=== PATIENT | male | born 1970 | race African-American/Black ===

== ENCOUNTER 2019-01-22 09:41 | Inpatient (IN) | payer OTHER ==
[2019-01-22] MEDS ORDERED: SODIUM CHLORIDE 1,000 ML IV STA (10:26)
[2019-01-22] MEDS ORDERED: FAMOTIDINE 20 MG/50 ML IVPB 20 MG/50 ML MG IVPB ONE ×2 (10:49→11:15)
[2019-01-22] MEDS ORDERED: ONDANSETRON 4 MG/2 ML VIAL IVPUSH ONE (10:49)
[2019-01-22] MEDS ORDERED: ONDANSETRON 4 MG/2 ML VIAL ONE (11:15)
[2019-01-22 11:27] LABS: BASO % 0.2 % (0-2.0); EOS % 0.4 % (0-4.5); HEMATOCRIT 45.3 % (35.4-49); HEMOGLOBIN 14.9 GM/dL (11.7-16.9); LYMPH % 22.4 % (8-40); MCH 29.1 pg (25.7-33.7); MEAN CELL VOLUME 88.1 fl (80-96); MEAN PLT VOLUME 8.1 fl (7.5-11.1); MONO % 16.3 % (3.8-10.2); NEUT % 60.7 % (42.8-82.8); PLATELET COUNT 415 K/MM3 (134-434); RBC 5.14 M/mm3 (4.00-5.60); RDW 15.3 % (11.9-15.9); WHITE BLOOD COUNT 11.7 K/mm3 (4.0-10.0)
--- NOTE | 2019-01-22 11:37 | PDOC ---
History of Present Illness - General Chief Complaint: Pain Stated Complaint: DIARRHEA/ABD PAIN Time Seen by Provider: 01/22/19 10:33 History Source: Patient, Significant Other Exam Limitations: No Limitations - History of Present Illness Initial Comments: 01/22/19 11:30 48 yo M w/ a h/o enlarged prostate comes in c/o 7 days of Diffuse abdominal pain , mostly lower with multiple episodes (more than 10 daily) of NB diarrhea. No nausea/vomiting, no urinary symptoms. Pt says that he savage snot been able to eat because he is scared. he has been drinking orange juice and water which is not helping. Last night he ate some chicken fried rice and he has been worse since. He does not ercall eating anything out of the ordinary when it all started a week ago. He had some rice and ribs for lunch but his friend who ate the same food is not sick. No recent travel. no rash. No recent antibiotic use. Past History - Past Medical History Allergies/Adverse Reactions: Allergies Allergy/AdvReac Type Severity Reaction Status Date / Time No Known Allergies Allergy Verified 01/22/19 09:47 Home Medications: Ambulatory Orders Tamsulosin HCl [Flomax] 0.4 mg PO DAILY 01/22/19 COPD: No Other medical history: overactive bladder, enlarged prostate - Immunization History Td Vaccination: No Immunization Up to Date: Yes - Suicide/Smoking/Psychosocial Hx Smoking Status: Yes Smoking History: Current every day smoker Number of Cigarettes Smoked Daily: 20 Information on smoking cessation initiated: No 'Breaking Loose' booklet given: 08/11/14 Hx Alcohol Use: No Drug/Substance Use Hx: No Review of Systems - Review of Systems Able to Perform ROS?: Yes Constitutional: No: Chills, Fever, Malaise, Night Sweats HEENTM: No: Eye Pain, Recent change in vision, Throat Pain Respiratory: No: Cough, Shortness of Breath Cardiac (ROS): No: Chest Pain, Palpitations, Chest Tightness ABD/GI: Yes: Diarrhea, Abdominal cramping. No: Nausea, Vomiting : No: Dysuria, Hematuria Musculoskeletal: No: Back Pain Integumentary: No: Rash Neurological: No: Headache, Numbness, Dizziness Psychiatric: Yes: Change in Appetite Endocrine: No: Unexplained Weight Loss *Physical Exam - Vital Signs Last Vital Signs Temp Pulse Resp BP Pulse Ox 98.3 F 85 18 102/69 98 01/22/19 09:49 01/22/19 09:49 01/22/19 09:49 01/22/19 09:49 01/22/19 09:49 - Physical Exam General Appearance: Yes: Nourished. No: Apparent Distress HEENT: positive: SILVINO, Normal ENT Inspection, Normal Voice. negative: Pale Conjunctivae, Scleral Icterus (R), Scleral Icterus (L) Neck: positive: Supple. negative: Decreased range of motion, Tender midline Respiratory/Chest: positive: Lungs Clear, Normal Breath Sounds. negative: Respiratory Distress, Accessory Muscle Use Cardiovascular: positive: Regular Rhythm, Regular Rate Gastrointestinal/Abdominal: positive: Normal Bowel Sounds, Tender (Diffuse lower /upper abdomen, worse in LLQ, (+)rebound), Soft, Guarding, Rebound Musculoskeletal: positive: Normal Inspection. negative: CVA Tenderness, Decreased Range of Motion Extremity: positive: Normal Capillary Refill, Normal Inspection, Normal Range of Motion. negative: Tender, Pedal Edema Integumentary: positive: Normal Color, Dry. negative: Jaundice, Rash Neurologic: positive: Fully Oriented, Alert, Normal Mood/Affect ED Treatment Course - LABORATORY CBC & Chemistry Diagram: 01/22/19 11:20 01/22/19 11:20 - RADIOLOGY Radiology Studies Ordered: Category Date Time Status ABDOMEN & PELVIS CT WITH CONTR [CT] Stat CT Scan 01/22/19 10:48 Ordered - Medications Given in the ED: ED Medications Discontinued Medications Generic Name Dose Route Start Last Admin Trade Name Freq PRN Reason Stop Dose Admin Sodium Chloride 1,000 mls @ 1,000 mls/hr 01/22/19 10:26 01/22/19 11:22 Normal Saline - IV 01/22/19 11:25 1,000 mls/hr ASDIR STA Administration Famotidine/Sodium Chloride 20 mg in 50 mls @ 100 mls/hr 01/22/19 10:49 11:22 Pepcid 20 Mg Premixed Ivpb - IVPB 01/22/19 11:18 100 mls/hr ONCE ONE Administration Ondansetron HCl 4 mg 01/22/19 10:49 01/22/19 11:22 Zofran Injection IVPUSH 01/22/19 10:50 4 mg ONCE ONE Administration Medical Decision Making - Medical Decision Making 01/22/19 13:34 48 yo M w/ 1 week of abdominal pain and diarrhea, not better. WIll line and lab , give zofran, pepcid, IV fluids, do a CT abdomen/pelvis R/O colitis/ diverticulitis 01/22/19 15:01 CT shows pancolitis, R/O Cystitis. Urine pending. Also w/ likely benign sclerotic thigh lesin, will do femur xray. Will admit for IV antibiotics. ceftriaxone, flagyl ordered. Pt's PMD is not on staff. Microblog paged 01/22/19 16:15 CHange of shift, care of patient signed over to admitting team *DC/Admit/Observation/Transfer Diagnosis at time of Disposition: Pancolitis - Referrals Referrals: Latrice Rucker MD [Primary Care Provider] - - Patient Instructions - Post Discharge Activity
[2019-01-22 11:39] LABS: INR 1.14 (0.83-1.09); PROTHROMBIN TIME (PATIENT) 13.5 SEC (9.7-13.0)
[2019-01-22 11:52] LABS: ALBUMIN 3.5 g/dl (3.4-5.0); BILIRUBIN,TOTAL 0.4 mg/dL (0.2-1); BLOOD UREA NITROGEN 14.1 mg/dL (7-18); CALCIUM 9.5 mg/dL (8.5-10.1); CREATININE 1.1 mg/dL (0.55-1.3); MAGNESIUM 2.3 mg/dL (1.8-2.4); PHOSPHOROUS 3.2 mg/dL (2.5-4.9); POTASSIUM 4.2 mmol/L (3.5-5.1); TOT PROT 7.2 g/dl (6.4-8.2)
[2019-01-22] MEDS ORDERED: CEFTRIAXONE 1,000 MG in DEXTROSE 5%-WATER - 50 ML IVPB ONE (14:52)
--- NOTE | 2019-01-22 14:52 | PDOC ---
*Physical Exam - Vital Signs Last Vital Signs Temp Pulse Resp BP Pulse Ox 98.3 F 85 18 102/69 98 01/22/19 09:49 01/22/19 09:49 01/22/19 09:49 01/22/19 09:49 01/22/19 09:49 Heart Score/ECG Review #1 ECG reviewed & interpreted by me at: 16:38 General ECG Interpretation: Sinus Rhythm, Normal Rate (64), Normal Intervals ( qtc 408, LVH), No acute ischemic changes ED Treatment Course - LABORATORY CBC & Chemistry Diagram: 01/22/19 11:20 01/22/19 11:20 - ADDITIONAL ORDERS Additional order review: Laboratory Results 01/22/19 01/22/19 01/22/19 11:20 11:20 11:20 PT with INR 13.50 H INR 1.14 H Sodium 138 Potassium 4.2 Chloride 104 Carbon Dioxide 26 Anion Gap 8 BUN 14.1 Creatinine 1.1 Est GFR (CKD-EPI)AfAm 91.52 Est GFR (CKD-EPI)NonAf 78.96 Random Glucose 82 Calcium 9.5 Phosphorus 3.2 Magnesium 2.3 Total Bilirubin 0.4 AST 15 ALT 31 Alkaline Phosphatase 101 Total Protein 7.2 Albumin 3.5 Lipase 45 L Blood Type O POSITIVE Antibody Screen Negative 01/22/19 11:20 RBC 5.14 MCV 88.1 MCHC 33.0 RDW 15.3 MPV 8.1 Neutrophils % 60.7 Lymphocytes % 22.4 Monocytes % 16.3 H Eosinophils % 0.4 Basophils % 0.2 - Medications Given in the ED: ED Medications Discontinued Medications Generic Name Dose Route Start Last Admin Trade Name Markoq PRN Reason Stop Dose Admin Sodium Chloride 1,000 mls @ 1,000 mls/hr 01/22/19 10:26 01/22/19 11:22 Normal Saline - IV 01/22/19 11:25 1,000 mls/hr ASDIR STA Administration Famotidine/Sodium Chloride 20 mg in 50 mls @ 100 mls/hr 01/22/19 10:49 11:22 Pepcid 20 Mg Premixed Ivpb - IVPB 01/22/19 11:18 100 mls/hr ONCE ONE Administration Ondansetron HCl 4 mg 01/22/19 10:49 01/22/19 11:22 Zofran Injection IVPUSH 01/22/19 10:50 4 mg ONCE ONE Administration Medical Decision Making - Medical Decision Making 01/22/19 14:48 Patient seen and evaluated with the nurse practitioner. I agree with the overall evaluation, assessment, and management with the following summary of visit: 48y/o M one week intractable diarrhea/abd pain with chills, no fever. no recent sick contacts/travel/abx. no h/o recurring GI illness. exam as noted with diffuse ttp, some guarding, no rebound. no cvat ? colitis v. enteritis, not toxic appearing and HD stable labs notable for wbc [address] confirms pancolitis - start abx admit given pain/dehydration and colitis. GI consult *DC/Admit/Observation/Transfer Diagnosis at time of Disposition: Pancolitis - Referrals - Patient Instructions - Post Discharge Activity
[2019-01-22] MEDS ORDERED: CEFTRIAXONE 1 GM/50 ML BAG ONE (15:18)
[2019-01-22 16:19] LABS: PH,URINE 5.5 (5.0-8.0); URINE APPEARANCE CLEAR; URINE BILIRUBIN NEGATIVE (NEGATIVE); URINE COLOR YELLOW; URINE GLUCOSE (UA) NEGATIVE (NEGATIVE); URINE KETONE NEGATIVE (NEGATIVE); URINE LEUK ESTERASE NEGATIVE (NEGATIVE); URINE NITRITE NEGATIVE (NEGATIVE); URINE PROTEIN NEGATIVE (NEGATIVE); URINE UROBILINOGEN 0.2 mg/dL (0.2-1.0)
--- NOTE | 2019-01-22 17:52 | HP ---
CHIEF COMPLAINT: Abdominal pain PCP: None HISTORY OF PRESENT ILLNESS: 48 y/o M with PMHx of BPH presents with abdominal pain and dairrhea. Patient ate some rice and ribs prepared by a coworker one week ago. Shortly after he had sudden onset 9/10 cramping, abdominal pain without radiation accompanied by loose, watery, yellow stools. Abdominal pain somewhat improved with BMs. That same evening, patient had an episode of cold sweats and a fever measured to be 103. He used acetaminophen for his fever, and immodium for his diarrhea which provided minimal relief. Denies any associated travel, sick contacts, medication changes or abx use. Additionally denies any nausea, vomiting but endorses decreased PO intake. Allergies No Known Allergies Allergy (Verified 01/22/19 09:47) HOME MEDICATIONS: Home Medications Medication Instructions Recorded Tamsulosin HCl [Flomax] 0.4 mg PO DAILY 01/22/19 PHYSICAL EXAMINATION Vital Signs - 24 hr 01/22/19 09:49 Temperature 98.3 F Pulse Rate 85 Respiratory 18 Rate Blood Pressure 102/69 O2 Sat by Pulse 98 Oximetry (%) GENERAL: A&Ox3, NAD ENT: MMM LUNGS: CTAB, No wheezes, no crackles. HEART: Regular rate and rhythm, normal S1 and S2 without murmur ABDOMEN: Soft, tender to palpation in the LLQ, not distended, + bowel sounds, no guarding, no rebound RECTAL: Stool in the vault, good sphincter tone, no external or internal hemorrhoids noted, No active bleeding noted, No blood on tip of glove, Large prostate without any nodules palpated Laboratory Last Values WBC 11.7 K/mm3 (4.0-10.0) H 01/22/19 11:20 RBC 5.14 M/mm3 (4.00-5.60) 01/22/19 11:20 Hgb 14.9 GM/dL (11.7-16.9) 01/22/19 11:20 Hct 45.3 % (35.4-49) 01/22/19 11:20 MCV 88.1 fl (80-96) 01/22/19 11:20 MCH 29.1 pg (25.7-33.7) 01/22/19 11:20 MCHC 33.0 g/dl (32.0-35.9) 01/22/19 11:20 RDW 15.3 % (11.9-15.9) 01/22/19 11:20 Plt Count 415 K/MM3 (134-434) 01/22/19 11:20 MPV 8.1 fl (7.5-11.1) 01/22/19 11:20 Absolute Neuts (auto) 7.1 K/mm3 (1.5-8.0) 01/22/19 11:20 Neutrophils % 60.7 % (42.8-82.8) 01/22/19 11:20 Lymphocytes % 22.4 % (8-40) 01/22/19 11:20 Monocytes % 16.3 % (3.8-10.2) H 01/22/19 11:20 Eosinophils % 0.4 % (0-4.5) 01/22/19 11:20 Basophils % 0.2 % (0-2.0) 01/22/19 11:20 Nucleated RBC % 0 % (0-0) 01/22/19 11:20 PT with INR 13.50 SEC (9.7-13.0) H 01/22/19 11:20 INR 1.14 (0.83-1.09) H 01/22/19 11:20 Sodium 138 mmol/L (136-145) 01/22/19 11:20 Potassium 4.2 mmol/L (3.5-5.1) 01/22/19 11:20 Chloride 104 mmol/L (98-107) 01/22/19 11:20 Carbon Dioxide 26 mmol/L (21-32) 01/22/19 11:20 Anion Gap 8 MMOL/L (8-16) 01/22/19 11:20 BUN 14.1 mg/dL (7-18) 01/22/19 11:20 Creatinine 1.1 mg/dL (0.55-1.3) 01/22/19 11:20 Est GFR (CKD-EPI)AfAm 91.52 01/22/19 11:20 Est GFR (CKD-EPI)NonAf 78.96 01/22/19 11:20 Random Glucose 82 mg/dL (74-106) 01/22/19 11:20 Calcium 9.5 mg/dL (8.5-10.1) 01/22/19 11:20 Phosphorus 3.2 mg/dL (2.5-4.9) 01/22/19 11:20 Magnesium 2.3 mg/dL (1.8-2.4) 01/22/19 11:20 Total Bilirubin 0.4 mg/dL (0.2-1) 01/22/19 11:20 AST 15 U/L (15-37) 01/22/19 11:20 ALT 31 U/L (13-61) 01/22/19 11:20 Alkaline Phosphatase 101 U/L (45-117) 01/22/19 11:20 Total Protein 7.2 g/dl (6.4-8.2) 01/22/19 11:20 Albumin 3.5 g/dl (3.4-5.0) 01/22/19 11:20 Lipase 45 U/L (73-393) L 01/22/19 11:20 Urine Color Yellow 01/22/19 15:12 Urine Appearance Clear 01/22/19 15:12 Urine pH 5.5 (5.0-8.0) 01/22/19 15:12 Ur Specific [place] 1.078 (1.010-1.035) H 01/22/19 15:12 Urine Protein Negative (NEGATIVE) 01/22/19 15:12 Urine Glucose (UA) Negative (NEGATIVE) 01/22/19 15:12 Urine Ketones Negative (NEGATIVE) 01/22/19 15:12 Urine Blood Negative (NEGATIVE) 01/22/19 15:12 Urine Nitrite Negative (NEGATIVE) 01/22/19 15:12 Urine Bilirubin Negative (NEGATIVE) 01/22/19 15:12 Urine Urobilinogen 0.2 mg/dL (0.2-1.0) 01/22/19 15:12 Ur Leukocyte Esterase Negative (NEGATIVE) 01/22/19 15:12 Stool Occult Blood Negative (NEGATIVE) 01/22/19 17:15 Blood Type O POSITIVE 01/22/19 11:20 Antibody Screen Negative 01/22/19 11:20 ASSESSMENT/PLAN: 48 y/o M with PMHx of BPH presents with abdominal pain and dairrhea. #Pancolitis--Unclear etiology; Possibly infectious--CT A/P noted for pancolitis , 11.7 WBC, FOBT Negative, otherwise Afebrile VSS, rectal exam unremarkable #Paraumbilical hernia #Bladder Stones #Left Femur sclerotic lesion, found on imaging #Hx of BPH -Check CDiff toxin/ag, Stool cx, fecal fat, stool studies, O&P -Continue Ceftriaxone 1g daily, Metronidazole 500mg Q8H -IV hydration via LR -Trial Clear liquid diet -IV PPI -GI (Dr. Avelar) Consulted -DVT PPx Visit type - Emergency Visit Emergency Visit: Yes ED Registration Date: 01/22/19 Care time: The patient presented to the Emergency Department on the above date and was hospitalized for further evaluation of their emergent condition. - New Patient This patient is new to me today: Yes Date on this admission: 01/23/19 - Critical Care Critical Care patient: No ATTENDING PHYSICIAN STATEMENT I saw and evaluated the patient. I reviewed the resident's note and discussed the case with the resident. I agree with the resident's findings and plan as documented. SUBJECTIVE: OBJECTIVE: ASSESSMENT AND PLAN:
[2019-01-22] MEDS ORDERED: ACETAMINOPHEN 325 MG TABLET (FP) PO PRN (18:30)
--- NOTE | 2019-01-22 19:19 | PN ---
Teaching Attending Note Name of Resident: Kennedy Cook ATTENDING PHYSICIAN STATEMENT I saw and evaluated the patient. I reviewed the resident's note and discussed the case with the resident. I agree with the resident's findings and plan as documented. SUBJECTIVE: Ongoing abdominal discomfort, ongoing diarrhea, occasional vomiting. Fevers resolved. OBJECTIVE: Afebrile. Hemodynamicaly Stable. Last Vital Signs Temp Pulse Resp BP Pulse Ox 98.3 F 85 18 102/69 98 01/22/19 09:49 01/22/19 09:49 01/22/19 09:49 01/22/19 09:49 01/22/19 09:49 HEENT - Atraumatic, Normocephalic. Heart - S1, S2, RRR Lungs - clear to auscultation Abdomen - distended, mild tenderness, worse in LLQ. Extremities - No edema, no calf tenderness. Neuro - AAO x 3. Tone/Power normal all 4 extremities. Laboratory Results - last 24 hr 01/22/19 01/22/19 01/22/19 11:20 11:20 11:20 WBC 11.7 H RBC 5.14 Hgb 14.9 Hct 45.3 MCV 88.1 MCH 29.1 MCHC 33.0 RDW 15.3 Plt Count 415 MPV 8.1 Absolute Neuts (auto) 7.1 Neutrophils % 60.7 Lymphocytes % 22.4 Monocytes % 16.3 H Eosinophils % 0.4 Basophils % 0.2 Nucleated RBC % 0 PT with INR 13.50 H INR 1.14 H Sodium 138 Potassium 4.2 Chloride 104 Carbon Dioxide 26 Anion Gap 8 BUN 14.1 Creatinine 1.1 Est GFR (CKD-EPI)AfAm 91.52 Est GFR (CKD-EPI)NonAf 78.96 Random Glucose 82 Calcium 9.5 Phosphorus 3.2 Magnesium 2.3 Total Bilirubin 0.4 AST 15 ALT 31 Alkaline Phosphatase 101 Total Protein 7.2 Albumin 3.5 Lipase 45 L Urine Color Urine Appearance Urine pH Ur Specific [place] Urine Protein Urine Glucose (UA) Urine Ketones Urine Blood Urine Nitrite Urine Bilirubin Urine Urobilinogen Ur Leukocyte Esterase Stool Occult Blood Blood Type Antibody Screen 01/22/19 01/22/19 01/22/19 11:20 15:12 17:15 WBC RBC Hgb Hct MCV MCH MCHC RDW Plt Count MPV Absolute Neuts (auto) Neutrophils % Lymphocytes % Monocytes % Eosinophils % Basophils % Nucleated RBC % PT with INR INR Sodium Potassium Chloride Carbon Dioxide Anion Gap BUN Creatinine Est GFR (CKD-EPI)AfAm Est GFR (CKD-EPI)NonAf Random Glucose Calcium Phosphorus Magnesium Total Bilirubin AST ALT Alkaline Phosphatase Total Protein Albumin Lipase Urine Color Yellow Urine Appearance Clear Urine pH 5.5 Ur Specific [place] 1.078 H Urine Protein Negative Urine Glucose (UA) Negative Urine Ketones Negative Urine Blood Negative Urine Nitrite Negative Urine Bilirubin Negative Urine Urobilinogen 0.2 Ur Leukocyte Esterase Negative Stool Occult Blood Negative Blood Type O POSITIVE Antibody Screen Negative Current Medications Generic Name Dose Route Start Last Admin Trade Name Freq PRN Reason Stop Dose Admin Acetaminophen 650 mg 01/22/19 18:30 Tylenol - PO Q4H PRN PAIN LEVEL 6-10 Sodium Chloride 1,000 mls @ 125 mls/hr 01/22/19 18:30 Normal Saline - IV ASDIR VAHE Pantoprazole Sodium 40 mg 01/22/19 19:00 Protonix - PO DAILY [facility] Home Medications Medication Instructions Recorded Tamsulosin HCl [Flomax] 0.4 mg PO DAILY 01/22/19 ASSESSMENT AND PLAN: 48 year old male with history of BPH presents with 1 week history of cramping abdominal pain and diarrhea with associated fever. Fever has since resolved but he has remained with intermittent cramping abdominal discomfort and watery diarrhea, without melena or hematochezia. No nausea/vomiting/hematemesis. 1. Pancolitis, etiology unclear CT A/P - Pancolitis Afebrile, hemodynamically stable. Stool for Cx and Cdiff. Will cover with IV ceftriaxone/Flagyl Clear liquid diet and IV hydration. GI consult. 2. L proximal Femur sclerotic bone lesion, incidental finding on CT Plain film Xray requested. Orthopedic Surgery consulted. 3. Bladder Wall thickening/possible cystitis on CT - asymptomatic. Afebrile. Urine Cx requested. Placed on ceftriaxone for colitis. 3. BPH - continue Tamsulosin DVT Px - Heparin SQ GI Px - PPI.
[2019-01-22] MEDS ORDERED: PANTOPRAZOLE 40 MG TABLET (FP) ONE (19:24)
--- NOTE | 2019-01-22 19:24 | HP ---
CHIEF COMPLAINT: Abdominal pain PCP: Dr. Latrice Azar HISTORY OF PRESENT ILLNESS: 48 y/o male w PMH BPH presents with 1 week of abdominal pain and associated profuse diarrhea. Pt states that he consumed ribs and fried rice, made by his co -worker's , on 15 Jan 2019 and within the hour he experienced watery, voluminous, non-bloody, diarrhea. The diarrhea persisted with a frequency of up to x10 per day. Pt states diarrhea made better with Imodium, though only temporarily. Home temp recorded at onset of 103F; took Tylenol and had no high tempature recurrence. Abdominal pain not currently present but was epigastric, cramping, nonradiating, associated with new food, better with Imodium, 10/10 only at onset and now not present. No sick contacts. No back pain. No blood or mucous in stool. No contact with new animals. Experienced somewhat similar experience in late , which resolved with conservative management. Denies nausea and vomiting. ER course was notable for: (1) Ceftriaxone and flagyl given (2) CT (+) pancolitis (3) TALHA performed /FOBT acquired Recent Travel: denies PAST MEDICAL HISTORY: BPH on Flomax PAST SURGICAL HISTORY: Denies Social History: Smoking:Current smoker 1/2 ppd for past 12 years Alcohol: denies Drugs: denies Family History: mother, pancreatic cancer Allergies: No Known Allergies Allergy (Verified 01/22/19 09:47) HOME MEDICATIONS: Home Medications Medication Instructions Recorded Tamsulosin HCl [Flomax] 0.4 mg PO DAILY 01/22/19 REVIEW OF SYSTEMS CONSTITUTIONAL: Absent: fever, chills, diaphoresis, generalized weakness, malaise, loss of appetite, weight change HEENT: Absent: rhinorrhea, nasal congestion, throat pain, throat swelling, difficulty swallowing, mouth swelling, ear pain, eye pain, visual changes CARDIOVASCULAR: Absent: chest pain, syncope, palpitations, irregular heart rate, lightheadedness , peripheral edema RESPIRATORY: Absent: cough, shortness of breath, dyspnea with exertion, orthopnea, wheezing, stridor, hemoptysis GASTROINTESTINAL: Absent: abdominal pain, abdominal distension, nausea, vomiting, diarrhea, constipation, melena, hematochezia GENITOURINARY: Absent: dysuria, frequency, urgency, hesitancy, hematuria, flank pain, genital pain MUSCULOSKELETAL: Absent: myalgia, arthralgia, joint swelling, back pain, neck pain SKIN: Absent: rash, itching, pallor HEMATOLOGIC/IMMUNOLOGIC: Absent: easy bleeding, easy bruising, lymphadenopathy, frequent infections ENDOCRINE: Absent: unexplained weight gain, unexplained weight loss, heat intolerance, cold intolerance NEUROLOGIC: Absent: headache, focal weakness or paresthesias, dizziness, unsteady gait, seizure, mental status changes, bladder or bowel incontinence PSYCHIATRIC: Absent: anxiety, depression, suicidal or homicidal ideation, hallucinations. PHYSICAL EXAMINATION Vital Signs - 24 hr 01/22/19 09:49 Temperature 98.3 F Pulse Rate 85 Respiratory 18 Rate Blood Pressure 102/69 O2 Sat by Pulse 98 Oximetry (%) GENERAL: AOx3, in no acute distress. HEAD: NCAT EYES: JAKE, EOMI, conjunctiva clear. ENT: Ears normal, nares patent, oropharynx clear without exudates. Moist mucous membranes. NECK: Normal range of motion, supple without lymphadenopathy, JVD, or masses. LUNGS: CTAB. No wheezes, and no crackles. No accessory muscle use. HEART: RRR s1 s2 ABDOMEN: Obese, soft, BS present in all 4 quadrants, non-distended, no JVD, TALHA : good sphincter tone, large prostate, no stool in vault MUSCULOSKELETAL: No bony deformities or tenderness. No CVA tenderness. UPPER EXTREMITIES: 2+ pulses, warm, well-perfused. No cyanosis. No clubbing. No peripheral edema. LOWER EXTREMITIES: 2+ pulses, warm, well-perfused. No calf tenderness. No peripheral edema. NEUROLOGICAL: Cranial nerves II-XII intact. Normal speech. Gait not appreciated. PSYCHIATRIC: Cooperative. Good eye contact. Appropriate mood and affect. SKIN: Warm, dry, normal turgor, no rashes or lesions noted, normal capillary refill. Laboratory Results - last 24 hr 01/22/19 01/22/19 01/22/19 11:20 11:20 11:20 WBC 11.7 H RBC 5.14 Hgb 14.9 Hct 45.3 MCV 88.1 MCH 29.1 MCHC 33.0 RDW 15.3 Plt Count 415 MPV 8.1 Absolute Neuts (auto) 7.1 Neutrophils % 60.7 Lymphocytes % 22.4 Monocytes % 16.3 H Eosinophils % 0.4 Basophils % 0.2 Nucleated RBC % 0 PT with INR 13.50 H INR 1.14 H Sodium 138 Potassium 4.2 Chloride 104 Carbon Dioxide 26 Anion Gap 8 BUN 14.1 Creatinine 1.1 Est GFR (CKD-EPI)AfAm 91.52 Est GFR (CKD-EPI)NonAf 78.96 Random Glucose 82 Calcium 9.5 Phosphorus 3.2 Magnesium 2.3 Total Bilirubin 0.4 AST 15 ALT 31 Alkaline Phosphatase 101 Total Protein 7.2 Albumin 3.5 Lipase 45 L Urine Color Urine Appearance Urine pH Ur Specific [place] Urine Protein Urine Glucose (UA) Urine Ketones Urine Blood Urine Nitrite Urine Bilirubin Urine Urobilinogen Ur Leukocyte Esterase Stool Occult Blood Blood Type Antibody Screen 01/22/19 01/22/19 01/22/19 11:20 15:12 17:15 WBC RBC Hgb Hct MCV MCH MCHC RDW Plt Count MPV Absolute Neuts (auto) Neutrophils % Lymphocytes % Monocytes % Eosinophils % Basophils % Nucleated RBC % PT with INR INR Sodium Potassium Chloride Carbon Dioxide Anion Gap BUN Creatinine Est GFR (CKD-EPI)AfAm Est GFR (CKD-EPI)NonAf Random Glucose Calcium Phosphorus Magnesium Total Bilirubin AST ALT Alkaline Phosphatase Total Protein Albumin Lipase Urine Color Yellow Urine Appearance Clear Urine pH 5.5 Ur Specific [place] 1.078 H Urine Protein Negative Urine Glucose (UA) Negative Urine Ketones Negative Urine Blood Negative Urine Nitrite Negative Urine Bilirubin Negative Urine Urobilinogen 0.2 Ur Leukocyte Esterase Negative Stool Occult Blood Negative Blood Type O POSITIVE Antibody Screen Negative ASSESSMENT/PLAN: 48 y/o male with PMH BPH presents with 1 week history of cramping abdominal pain and diarrhea with associated fever. Fever has since resolved but he has remained with intermittent cramping abdominal discomfort and watery diarrhea, without melena or hematochezia. No nausea/vomiting/hematemesis. # Pancolitis, etiology unclear - CT A/P - pancolitis - Afebrile, hemodynamically stable. - Stool for Cx and Cdiff. - Will cover with IV ceftriaxone/flagyl - Clear liquid diet and IV hydration. - GI consult # Bladder stones - Found on CT - Asymptomatic # LEFT proximal Femur sclerotic bone lesion, incidental finding on CT - Plain film requested - Orthopedic Surgery consulted. # Bladder Wall thickening/possible cystitis on CT - Asymptomatic - Afebrile - Urine Cx pending - Ceftriaxone for colitis # BPH - Cont. Tamsulosin # DVT prophylaxis - Heparin SQ # GI prophylaxis - Protonix 40 mg QD # F/E/N - NS - Cont. to monitor electrolytes - Clear liquid diet Visit type - Emergency Visit Emergency Visit: Yes ED Registration Date: 01/22/19 Care time: The patient presented to the Emergency Department on the above date and was hospitalized for further evaluation of their emergent condition. - New Patient This patient is new to me today: Yes Date on this admission: 01/23/19 - Critical Care Critical Care patient: No ATTENDING PHYSICIAN STATEMENT I saw and evaluated the patient. I reviewed the resident's note and discussed the case with the resident. I agree with the resident's findings and plan as documented. SUBJECTIVE: OBJECTIVE: ASSESSMENT AND PLAN:
[2019-01-22] MEDS: PANTOPRAZOLE 40 MG TABLET (FP) PO SCH (19:29)
[2019-01-22] MEDS: SODIUM CHLORIDE 1,000 ML IV SCH (19:37)
[2019-01-22] MEDS ORDERED: HEPARIN NA (PORCINE) 5,000 UNITS/ML 1ML VIAL ONE (23:43)
[2019-01-22] MEDS: HEPARIN NA (PORCINE) 5,000 UNITS/ML 1ML VIAL SQ SCH (23:48)
[2019-01-23] MEDS ORDERED: ACETAMINOPHEN 325 MG TABLET (FP) ONE (00:22)
[2019-01-23] MEDS ORDERED: HEPARIN NA (PORCINE) 5,000 UNITS/ML 1ML VIAL ONE (05:46)
[2019-01-23] MEDS: HEPARIN NA (PORCINE) 5,000 UNITS/ML 1ML VIAL SQ SCH ×3 (06:10→22:32)
[2019-01-23 07:27] LABS: BASO % 0.3 % (0-2.0); EOS % 0.8 % (0-4.5); HEMATOCRIT 38.8 % (35.4-49); HEMOGLOBIN 13.1 GM/dL (11.7-16.9); LYMPH % 19.2 % (8-40); MCH 29.9 pg (25.7-33.7); MCHC 33.8 g/dl (32.0-35.9); MEAN CELL VOLUME 88.4 fl (80-96); MONO % 18.8 % (3.8-10.2); NEUT % 60.9 % (42.8-82.8); PLATELET COUNT 353 K/MM3 (134-434); RBC 4.39 M/mm3 (4.00-5.60); RDW 15.1 % (11.9-15.9); WHITE BLOOD COUNT 9.1 K/mm3 (4.0-10.0)
[2019-01-23 07:46] LABS: MAGNESIUM 2.1 mg/dL (1.8-2.4); PHOSPHOROUS 2.6 mg/dL (2.5-4.9)
[2019-01-23] MEDS ORDERED: CEFTRIAXONE 1 GM in DEXTROSE 5%-WATER - 50 ML IVPB SCH (10:00)
[2019-01-23] MEDS ORDERED: CEFTRIAXONE 1 GM/50 ML BAG ONE (11:32)
[2019-01-23] MEDS ORDERED: cefTRIAXone SODIUM 1 GM VIAL ONE (11:57)
[2019-01-23] MEDS ORDERED: DEXTROSE 5%-WATER - 50 ML IVPB ONE (11:57)
[2019-01-23] MEDS: SODIUM CHLORIDE 1,000 ML IV SCH ×2 (12:08→23:35)
[2019-01-23] MEDS: PANTOPRAZOLE 40 MG TABLET (FP) PO SCH (12:08)
--- NOTE | 2019-01-23 14:06 | EKG ---
Test Reason : Blood Pressure : / mmHG Vent. Rate : 064 BPM Atrial Rate : 064 BPM P-R Int : 160 ms QRS Dur : 100 ms QT Int : 396 ms P-R-T Axes : 068 056 042 degrees QTc Int : 408 ms NORMAL SINUS RHYTHM POSSIBLE LEFT ATRIAL ENLARGEMENT LEFT VENTRICULAR HYPERTROPHY ABNORMAL ECG NO PREVIOUS ECGS AVAILABLE Confirmed by JIMI MCKEON MD ([id number]) on 01/23/2019 2:06:20 PM Referred By: Confirmed By:JIMI MCKEON MD
--- NOTE | 2019-01-23 14:30 | CON.GI ---
Consult Consult Specialty:: GI Referred by:: Hospitalist Service Reason for Consultation:: Diarrhea - History of Present Illness Chief Complaint: Diarrhea History of Present Illness: 48M in his USOH up until last . He states that that day, he had ribs for lunch at around 1pm. at around 5:30 that noght, he developed shakes, sweats and chills. His temp was 101F. He then began experiencing abdominal cramping associated with multiple water bowel movements. He denies nausea or vomiting. Diarrhea persisted through last weekend and this week, becoming a little less frequent yesterday prior to his evaluation at [facility]. He denies any rectal bleeding or blood diarrhea. He denies similar episodes in the past, recent travel, sick contacts, antibiotic use. Fevers and chills stoped the first day of the onset of his symptoms. The abdominal cramping seems to occur only prior to a bowel movement. he denies tenesmus complaints. CT scan performed in the ED revealed a diffusely thickened colon consistent with colitis. There is no family history of colorectal cancer / IBD / Celiac disease. He has never had an upper endoscopy or colonoscopy. - History Source History Provided By: Patient Limitations to Obtaining History: No Limitations - Past Medical History Renal/: Yes: BPH - Past Surgical History Past Surgical History: Yes: None - Alcohol/Substance Use Hx Alcohol Use: No - Smoking History Smoking history: Current every day smoker Have you smoked in the past 12 months: Yes Aproximately how many cigarettes per day: 20 - Social History Usual Living Arrangement: With Spouse ADL: Independent Occupation: Works in a warehouse Place of : [facility] History of Recent Travel: No Home Medications - Allergies Allergies/Adverse Reactions: Allergies Allergy/AdvReac Type Severity Reaction Status Date / Time No Known Allergies Allergy Verified 01/22/19 09:47 - Home Medications Home Medications: Ambulatory Orders Tamsulosin HCl [Flomax] 0.4 mg PO DAILY 01/22/19 Family Disease History - Family Disease History Family Disease History: Other: Father (Alive: healthy), Mother (: Pancreatic ca: 58), Brother (3, healthy), Daughter (2, healthy) Other Family History: No family history of colorectal cancer, IBD, celiac disease Review of Systems - Review of Systems Constitutional: reports: Chills (resolved), Fever (resolved). denies: Night Sweats, Unintentional Wgt. Loss Cardiovascular: denies: Chest Pain Respiratory: denies: Cough Gastrointestinal: reports: Abdominal Pain (cramping), Diarrhea. denies: Bloating, Constipation, Nausea, Rectal Bleeding, Vomiting Physical Exam-GI Vital Signs: Vital Signs Temperature 98.1 F 01/23/19 11:23 Pulse Rate 68 01/23/19 11:23 Respiratory Rate 18 01/23/19 11:23 Blood Pressure 132/82 01/23/19 11:23 O2 Sat by Pulse Oximetry (%) 99 on RA 01/23/19 11:23 Constitutional: Yes: Calm Eyes: No: Sclera Icterus Cardiovascular: Yes: Regular Rate and Rhythm. No: Murmur Respiratory: Yes: CTA Bilaterally Gastrointestinal Inspection: No: Distention, Scars ...Auscultate: Yes: Normoactive Bowel Sounds ...Palpate: Yes: Soft. No: Hepatomegaly, Splenomegaly ...Percussion: No: Tympanitic Edema: No (No LE edema) Neurological: Yes: Alert Labs: CBC, BMP 01/23/19 07:00 01/22/19 11:20 INR, PTT INR 1.14 (0.83-1.09) H 01/22/19 11:20 Hepatic Panel Total Bilirubin 0.4 mg/dL (0.2-1) 01/22/19 11:20 AST 15 U/L (15-37) 01/22/19 11:20 ALT 31 U/L (13-61) 01/22/19 11:20 Alkaline Phosphatase 101 U/L (45-117) 01/22/19 11:20 Albumin 3.5 g/dl (3.4-5.0) 01/22/19 11:20 Imaging - Results Cat Scan: Report Reviewed, Image Reviewed Problem List - Problems (1) Diarrhea Assessment/Plan: Acute diarrhea with CT findings suggestive of a colitis. A self limited infectious colitis would need to be higher in the differential given acuity of symptoms. Mr. Borrego appears clinically well without focal findings on my exam. Stool culture, C. Diff pending. Fecal calprotectin and Norovirus PCR ordered as well, however symptoms from norovirus are usually brief in duration and not associated with a colitis. I have advanced his diet to lactose free. he does not have bloody diarrhea, continued fevers and does not give history of immunocompromised state. Can likely hold off on antibiotics at this time. Consider HIV testing Monitor clinically and for tolerance of his diet AM labs Code(s): R19.7 - DIARRHEA, UNSPECIFIED Qualifiers: Diarrhea type: presumed infectious Qualified Code(s): R19.7 - Diarrhea, unspecified
--- NOTE | 2019-01-23 15:24 | PN ---
Progress Note (short form) - Note Progress Note: C. Diff Ag +. Given symptoms and colitis on CT scan would start treatment, await remaining stool work-up, stopped protonix and ordered C. Diff toxin PCR. Consider ID evaluation Problem List - Problems (1) Diarrhea Code(s): R19.7 - DIARRHEA, UNSPECIFIED Qualifiers: Diarrhea type: presumed infectious Qualified Code(s): R19.7 - Diarrhea, unspecified
--- NOTE | 2019-01-23 17:26 | PN ---
Physical Exam: SUBJECTIVE: 48 y/o male with PMH BPH presents with 1 week history of cramping abdominal pain and diarrhea with associated fever. Fever has since resolved but he has remained with intermittent cramping abdominal discomfort and watery diarrhea, without melena or hematochezia. No nausea/vomiting/hematemesis. Pt seen at bedside today. He reports continued diarrhea x6, mostly water, no blood. He denies NVFC. OBJECTIVE: Vital Signs Period Temp Pulse Resp BP Sys/Soni Pulse Ox Last 24 Hr 97.8 F-98.3 F 62-84 18-20 118-147/64-81 98-100 GENERAL: AOx3, in no acute distress. HEAD: NCAT EYES: JAKE, EOMI, conjunctiva clear. ENT: Ears normal, nares patent, oropharynx clear without exudates. Moist mucous membranes. NECK: Normal range of motion, supple without lymphadenopathy, JVD, or masses. LUNGS: CTAB. No wheezes, and no crackles. No accessory muscle use. HEART: RRR s1 s2 ABDOMEN: Obese, soft, BS present in all 4 quadrants, non-distended, no JVD, TALHA : good sphincter tone, large prostate, no stool in vault MUSCULOSKELETAL: No bony deformities or tenderness. No CVA tenderness. UPPER EXTREMITIES: 2+ pulses, warm, well-perfused. No cyanosis. No clubbing. No peripheral edema. LOWER EXTREMITIES: 2+ pulses, warm, well-perfused. No calf tenderness. No peripheral edema. NEUROLOGICAL: Cranial nerves II-XII intact. Normal speech. Gait not appreciated. PSYCHIATRIC: Cooperative. Good eye contact. Appropriate mood and affect. SKIN: Warm, dry, normal turgor, no rashes or lesions noted, normal capillary refill. Laboratory Results - last 24 hr 01/22/19 01/22/19 01/23/19 17:15 20:45 07:00 WBC 9.1 RBC 4.39 Hgb 13.1 Hct 38.8 MCV 88.4 MCH 29.9 MCHC 33.8 RDW 15.1 Plt Count 353 MPV 8.0 Absolute Neuts (auto) 5.5 Neutrophils % 60.9 Lymphocytes % 19.2 Monocytes % 18.8 H Eosinophils % 0.8 D Basophils % 0.3 Nucleated RBC % 0 Phosphorus Magnesium Stool Occult Blood Negative Blood Type O POSITIVE 01/23/19 07:00 WBC RBC Hgb Hct MCV MCH MCHC RDW Plt Count MPV Absolute Neuts (auto) Neutrophils % Lymphocytes % Monocytes % Eosinophils % Basophils % Nucleated RBC % Phosphorus 2.6 Magnesium 2.1 Stool Occult Blood Blood Type Active Medications Acetaminophen (Tylenol -) 650 mg PO Q4H PRN PRN Reason: PAIN LEVEL 6-10 Last Admin: 01/23/19 00:30 Dose: 650 mg Heparin Sodium (Porcine) (Heparin -) 5,000 unit SQ TID [facility] Last Admin: 01/24/19 22:02 Dose: 5,000 unit Vancomycin HCl (Vancomycin Oral Solution) 125 mg PO Q6HPO [facility] Last Admin: 01/24/19 17:03 Dose: 125 mg ASSESSMENT/PLAN: 48 y/o male with PMH BPH presents with 1 week history of cramping abdominal pain and diarrhea with associated fever. Fever has since resolved but he has remained with intermittent cramping abdominal discomfort and watery diarrhea, without melena or hematochezia. No nausea/vomiting/hematemesis. # Pancolitis, 2/2 c diff - CT A/P - pancolitis - Afebrile, hemodynamically stable. - Cdiff. organism (+) - Empiric IV Ceftriaxone/Flagyl stopped. PPI held. Started on oral Vancomycin. - Clear liquid diet and IV hydration. - GI consult: > Stop protonix > Consider ID evaluation > Advance to lactose free diet # Bladder stones - Found on CT - Asymptomatic # LEFT proximal Femur sclerotic bone lesion, incidental finding on CT - Plain film requested - Orthopedic Surgery consulted > Benign lesion. > Will need to follow up with an orthopedic oncologist for further evaluation and management after he is d/c. Dr. Blake Carmen (Orthopedic Oncology at [facility], ) > Advised to seek immediate care if he develops hip or groin pain. # Bladder Wall thickening/possible cystitis on CT - Asymptomatic - Afebrile - Urine Cx pending - Ceftriaxone for colitis # BPH - Cont. Tamsulosin # DVT prophylaxis - Heparin SQ # GI prophylaxis - Protonix 40 mg QD # F/E/N - NS - Cont. to monitor electrolytes - Clear liquid diet Kennedy Cook MD Visit type - Emergency Visit Emergency Visit: No - New Patient This patient is new to me today: No - Critical Care Critical Care patient: No - Discharge Referral Referred to [facility] Med P.C.: No ATTENDING PHYSICIAN STATEMENT I saw and evaluated the patient. I reviewed the resident's note and discussed the case with the resident. I agree with the resident's findings and plan as documented. SUBJECTIVE: OBJECTIVE: ASSESSMENT AND PLAN:
[2019-01-23] MEDS: VANCOMYCIN 250 MG/5 ML ORAL SOLUTION PO SCH ×2 (17:34→23:32)
--- NOTE | 2019-01-23 18:37 | CONSULT ---
Consult - text type - Consultation Consultation Note: ORTHOPEDIC SURGERY CONSULTATION NOTE Department of Orthopedic Surgery HISTORY OF PRESENT ILLNESS Lorenzo Borrego is a 48 year old male who was admitted to [facility] with colitis. The orthopedic service was consulted for a incidental sclerotic lesion of the proximal femur. The patient has no hip pain currently or history of hip or groin pain. Denies any recent injuries. Denies numbness, tingling or other constitutional complaints. Endorses tobacco use. Denies drug use or alcohol abuse. The patient lives with his and uses no assistive devices at baseline. Active Problems Problem Status Category Onset Diarrhea Acute Medical Pancolitis Acute Medical Past Medical History Renal/ BPH Past Surgical History Past Surgical History None Social History Smoking history Current every day smoker Aproximately how many 20 cigarettes per day Hx Alcohol Use No Usual Living Arrangement With Spouse ADL Independent Occupation Works in a [employer] History of Recent Travel No Allergies Allergy/AdvReac Type Severity Reaction Status Date / Time No Known Allergies Allergy Verified 01/22/19 09:47 Active Medications Generic Name Dose Route Start Last Admin Trade Name Freq PRN Reason Stop Dose Admin Acetaminophen 650 mg 01/22/19 18:30 01/23/19 00:30 Tylenol - PO 650 mg Q4H PRN Administration PAIN LEVEL 6-10 Heparin Sodium (Porcine) 5,000 unit 01/22/19 22:00 01/23/19 14:13 Heparin - SQ 5,000 unit TID [facility] Administration Sodium Chloride 1,000 mls @ 125 mls/hr 01/22/19 18:30 01/23/19 12:08 Normal Saline - IV 125 mls/hr ASDIR [facility] Administration Vancomycin HCl 125 mg 01/23/19 18:00 01/23/19 17:34 Vancomycin Oral Solution PO 125 mg Q6HPO [facility] Administration Vital Signs (last) Temp Pulse Resp BP Pulse Ox 98.3 F 62 18 128/67 99 01/23/19 14:24 01/23/19 14:24 01/23/19 14:24 01/23/19 14:24 01/23/19 12:23 Intake and Output 01/21/19 01/22/19 01/23/19 23:59 23:59 23:59 Intake Total 450 Balance 450 Intake: IV 300 Normal Saline - 1,000 ml 300 @ 125 mls/hr IV ASDIR [facility] Rx#:[id number] IVPB 150 Other: Voiding Method Toilet Toilet Bowel Movement Yes # Bowel Movements 1 Weight 218 lb 215 lb 8 oz Height 6 ft 6 ft Body Mass Index (BMI) 29.5 29.2 Weight Measurement Method Standing Scale Weight Measurement Method Est/Stated by Patient Laboratory 01/23/19 07:00 01/22/19 11:20 PT with INR 13.50 SEC (9.7-13.0) H 01/22/19 11:20 Active Problems Problem Status Category Onset Diarrhea Acute Medical Pancolitis Acute Medical Past Medical History Renal/ BPH Past Surgical History Past Surgical History None Social History Smoking history Current every day smoker Aproximately how many 20 cigarettes per day Hx Alcohol Use No Usual Living Arrangement With Spouse ADL Independent Occupation Works in a [employer] History of Recent Travel No Allergies Allergy/AdvReac Type Severity Reaction Status Date / Time No Known Allergies Allergy Verified 01/22/19 09:47 Active Medications Generic Name Dose Route Start Last Admin Trade Name Freq PRN Reason Stop Dose Admin Acetaminophen 650 mg 01/22/19 18:30 01/23/19 00:30 Tylenol - PO 650 mg Q4H PRN Administration PAIN LEVEL 6-10 Heparin Sodium (Porcine) 5,000 unit 01/22/19 22:00 01/23/19 14:13 Heparin - SQ 5,000 unit TID [facility] Administration Sodium Chloride 1,000 mls @ 125 mls/hr 01/22/19 18:30 01/23/19 12:08 Normal Saline - IV 125 mls/hr ASDIR [facility] Administration Vancomycin HCl 125 mg 01/23/19 18:00 01/23/19 17:34 Vancomycin Oral Solution PO 125 mg Q6HPO [facility] Administration Vital Signs (last) Temp Pulse Resp BP Pulse Ox 98.3 F 62 18 128/67 99 01/23/19 14:24 01/23/19 14:24 01/23/19 14:24 01/23/19 14:24 01/23/19 12:23 Intake and Output 01/21/19 01/22/19 01/23/19 23:59 23:59 23:59 Intake Total 450 Balance 450 Intake: IV 300 Normal Saline - 1,000 ml 300 @ 125 mls/hr IV ASDIR [facility] Rx#:[id number] IVPB 150 Other: Voiding Method Toilet Toilet Bowel Movement Yes # Bowel Movements 1 Weight 218 lb 215 lb 8 oz Height 6 ft 6 ft Body Mass Index (BMI) 29.5 29.2 Weight Measurement Method Standing Scale Weight Measurement Method Est/Stated by Patient Laboratory 01/23/19 07:00 01/22/19 11:20 PT with INR 13.50 SEC (9.7-13.0) H 01/22/19 11:20 FAMILY HISTORY Reviewed and noncontributory. REVIEW OF SYMPTOMS A twelve-point review of systems was performed and was negative except as noted in HPI. PHYSICAL EXAM Constitutional: Alert and oriented to person, place, and time. Appears well- developed and well-nourished. No acute distress, appropriate mood and affect. Right Upper Extremity: No tenderness to palpation. Full passive and active ROM, free from pain. Left Upper Extremity: No tenderness to palpation. Full passive and active ROM, free from pain. Right Lower Extremity: Skin warm, dry, and intact; no lesions, rashes or ulcers noted. Muscle mass equal and symmetric to contralateral side. No atrophy noted. No masses or effusions noted. No tenderness to palpation. No cords or calf tenderness. No significant calf/ankle edema. Full passive and active ROM, free from pain. Joints stable with no pathologic laxity. EHL/TA/GS motor intact; SILT distally; 2+ DP pulses; Cap refill brisk. Tone and reflexes normal. Left Lower Extremity: Skin warm, dry, and intact; no lesions, rashes or ulcers noted. Muscle mass equal and symmetric to contralateral side. No atrophy noted. No masses or effusions noted. No tenderness to palpation. No cords or calf tenderness. No significant calf/ankle edema. Full passive and active ROM, free from pain. Joints stable with no pathologic laxity. EHL/TA/GS motor intact; SILT distally; 2+ DP pulses; Cap refill brisk. Tone and reflexes normal. IMAGING I personally reviewed all radiographs and CT imaging. They demonstrate a well- defined 4.8 x 2.4 cm lesion with a central luceny and a sclerotic rim of varying thickness located in the intertrochanteric region of the left proximal femur. There is no periosteal reaction or cortical destruction. ASSESSMENT AND PLAN Lorenzo Borrego is a 48 year old male with an incidental finding of a 4.8 x 2.4 cm lesion located in the intertrochanteric region of the left proximal femur. The patient does not have any pain, limping, or abnormal gait pattern. We have reviewed the imaging and clinical findings in detail, as well as their potential implications. This appears to be a benign lesion. No orthopedic intervention is necessary at this time; however, the patient will need to follow up with an orthopedic oncologist for further evaluation and management after he is discharged from the hospital. I have given him the information for Dr. Blake Carmen (Orthopedic Oncology at [facility], ). He expressed understanding and will follow up accordingly. He may be weight bearing as tolerated, but was advised to seek immediate care if he develops hip or groin pain. All questions were answered. Thank you for involving our team in the care of this patient. Please call with any questions [phone].
--- NOTE | 2019-01-23 18:41 | PN ---
Teaching Attending Note Name of Resident: Kennedy Cook ATTENDING PHYSICIAN STATEMENT I saw and evaluated the patient. I reviewed the resident's note and discussed the case with the resident. I agree with the resident's findings and plan as documented. SUBJECTIVE: Abdominal discomfort resolved but ongoing watery diarrhea - x 6 overnight. Fevers resolved. OBJECTIVE: Afebrile. Hemodynamicaly Stable. Last Vital Signs Temp Pulse Resp BP Pulse Ox 98.3 F 62 18 128/67 99 01/23/19 14:24 01/23/19 14:24 01/23/19 14:24 01/23/19 14:24 01/23/19 12:23 Heart - S1, S2, RRR Lungs - clear to auscultation Abdomen - distended, non-tender. Bowel Sounds normal. Extremities - No edema, no calf tenderness. Neuro - AAO x 3. Tone/Power normal all 4 extremities. Laboratory Results - last 24 hr 01/22/19 01/23/19 01/23/19 20:45 07:00 07:00 WBC 9.1 RBC 4.39 Hgb 13.1 Hct 38.8 MCV 88.4 MCH 29.9 MCHC 33.8 RDW 15.1 Plt Count 353 MPV 8.0 Absolute Neuts (auto) 5.5 Neutrophils % 60.9 Lymphocytes % 19.2 Monocytes % 18.8 H Eosinophils % 0.8 D Basophils % 0.3 Nucleated RBC % 0 Phosphorus 2.6 Magnesium 2.1 Blood Type O POSITIVE Current Medications Generic Name Dose Route Start Last Admin Trade Name Freq PRN Reason Stop Dose Admin Acetaminophen 650 mg 01/22/19 18:30 01/23/19 00:30 Tylenol - PO 650 mg Q4H PRN Administration PAIN LEVEL 6-10 Heparin Sodium (Porcine) 5,000 unit 01/22/19 22:00 01/23/19 14:13 Heparin - SQ 5,000 unit TID [facility] Administration Sodium Chloride 1,000 mls @ 125 mls/hr 01/22/19 18:30 01/23/19 12:08 Normal Saline - IV 125 mls/hr ASDIR [facility] Administration Vancomycin HCl 125 mg 01/23/19 18:00 01/23/19 17:34 Vancomycin Oral Solution PO 125 mg Q6HPO [facility] Administration Home Medications Medication Instructions Recorded Tamsulosin HCl [Flomax] 0.4 mg PO DAILY 01/22/19 ASSESSMENT AND PLAN: 48 year old male with history of BPH presents with 1 week history of cramping abdominal pain and diarrhea with associated fever. Fever has since resolved but he has remained with intermittent cramping abdominal discomfort and watery diarrhea, without melena or hematochezia. No nausea/vomiting/hematemesis. 1. Pancolitis, etiology unclear CT A/P - Pancolitis Afebrile, hemodynamically stable. Stool Cx pending. Cdiff positive Empiric IV Ceftriaxone/Flagyl stopped. PPI held. Started on oral Vancomycin. Advance diet as per GI. IV hydration. GI following. 2. L proximal Femur sclerotic bone lesion, incidental finding on CT Plain film Xray shows focal intertrochanteric lesion. As per Orthopedic Surgery consultation, lesion appears benign with no intervention necessary at this time. he recommends follow up with orthopedic oncologist for further evaluation and management as out-patient - Dr. Blake Carmen (Orthopedic Oncology at [facility], ). He was advised to seek immediate care if he develops hip or groin pain. 3. Bladder Wall thickening/possible cystitis on CT - asymptomatic. Afebrile. Urine Cx pending. 3. BPH - continue Tamsulosin DVT Px - Heparin SQ
[2019-01-23] MEDS ORDERED: CEFTRIAXONE 1,000 MG in DEXTROSE 5%-WATER - 50 ML IVPB SCH (19:30)
[2019-01-24] MEDS: HEPARIN NA (PORCINE) 5,000 UNITS/ML 1ML VIAL SQ SCH ×3 (06:14→22:02)
[2019-01-24] MEDS: VANCOMYCIN 250 MG/5 ML ORAL SOLUTION PO SCH ×3 (06:14→17:03)
[2019-01-24] MEDS: SODIUM CHLORIDE 1,000 ML IV SCH (06:17)
[2019-01-24] MEDS ORDERED: PT OWN MED DRAWER 7, Y5N ONE (06:21)
[2019-01-24 08:02] LABS: BASO % 0.4 % (0-2.0); EOS % 0.7 % (0-4.5); HEMATOCRIT 40.2 % (35.4-49); HEMOGLOBIN 13.7 GM/dL (11.7-16.9); LYMPH % 29.6 % (8-40); MCH 30.3 pg (25.7-33.7); MCHC 34.2 g/dl (32.0-35.9); MEAN CELL VOLUME 88.7 fl (80-96); MEAN PLT VOLUME 8.6 fl (7.5-11.1); NEUT % 55.3 % (42.8-82.8); PLATELET COUNT 410 K/MM3 (134-434); RBC 4.53 M/mm3 (4.00-5.60); WHITE BLOOD COUNT 8.2 K/mm3 (4.0-10.0)
[2019-01-24 08:42] LABS: ALBUMIN 3.3 g/dl (3.4-5.0); BILIRUBIN,TOTAL 0.4 mg/dL (0.2-1); BLOOD UREA NITROGEN 9.6 mg/dL (7-18); CALCIUM 8.6 mg/dL (8.5-10.1); CREATININE 0.9 mg/dL (0.55-1.3); MAGNESIUM 2.2 mg/dL (1.8-2.4); PHOSPHOROUS 2.2 mg/dL (2.5-4.9); TOT PROT 6.4 g/dl (6.4-8.2)
[2019-01-24] MEDS ORDERED: POTASSIUM PHOSPHATE 15 MM in SODIUM CHLORIDE 250 ML IVPB ONE (09:30)
--- NOTE | 2019-01-24 11:48 | PN ---
Physical Exam: SUBJECTIVE: Patient seen and examined this AM. Admits to recent Ampicillin use for otitis media. 5-6 loose BMs overnight, 3 this am thus far. No associated fevers, chills, chest pain, SOB, nausea, vomiting. OBJECTIVE: Vital Signs Period Temp Pulse Resp BP Sys/Soni Pulse Ox Last 24 Hr 98.0 F-98.7 F 62-72 18-18 113-128/64-72 99-100 GENERAL: A&Ox3, NAD HEAD: NCAT EYES: PERRL, EOMI ENT: MMM NECK: Supple, No JVD LUNGS: CTAB, no wheezes, no crackles HEART: Regular rate and rhythm, S1, S2 without murmur ABDOMEN: Soft, nontender, nondistended, +bowel sounds, no guarding, no rebound EXTREMITIES: no edema. NEUROLOGICAL: Cranial nerves II through XII grossly intact. Normal speech. SKIN: Warm, dry Laboratory Results - last 24 hr 01/24/19 01/24/19 06:30 06:30 WBC 8.2 RBC 4.53 Hgb 13.7 Hct 40.2 MCV 88.7 MCH 30.3 MCHC 34.2 RDW 15.0 Plt Count 410 MPV 8.6 Absolute Neuts (auto) 4.6 Neutrophils % 55.3 Lymphocytes % 29.6 D Monocytes % 14.0 H Eosinophils % 0.7 Basophils % 0.4 Nucleated RBC % 0 Sodium 140 Potassium 4.0 Chloride 106 Carbon Dioxide 27 Anion Gap 7 L BUN 9.6 Creatinine 0.9 Est GFR (CKD-EPI)AfAm 116.65 Est GFR (CKD-EPI)NonAf 100.64 Random Glucose 83 Calcium 8.6 Phosphorus 2.2 L Magnesium 2.2 Total Bilirubin 0.4 AST 17 ALT 25 Alkaline Phosphatase 80 Total Protein 6.4 Albumin 3.3 L Microbiology 01/22/19 20:17 Stool Clostridioides difficile Antigen - Final 01/22/19 20:17 Stool Clostridioides difficile Toxin Assay - Final Active Medications Acetaminophen (Tylenol -) 650 mg PO Q4H PRN PRN Reason: PAIN LEVEL 6-10 Last Admin: 01/23/19 00:30 Dose: 650 mg Heparin Sodium (Porcine) (Heparin -) 5,000 unit SQ TID [facility] Last Admin: 01/24/19 06:14 Dose: 5,000 unit Sodium Chloride (Normal Saline -) 1,000 mls @ 125 mls/hr IV ASDIR [facility] Last Admin: 01/24/19 06:17 Dose: 125 mls/hr Potassium Phosphate 15 mm/ (Sodium Chloride) 255 mls @ 42.5 mls/hr IVPB ONCE ONE Stop: 01/24/19 15:29 Last Admin: 01/24/19 10:04 Dose: 42.5 mls/hr Vancomycin HCl (Vancomycin Oral Solution) 125 mg PO Q6HPO [facility] Last Admin: 01/24/19 11:32 Dose: 125 mg ASSESSMENT/PLAN: 48 y/o M with PMHx BPH presents with cramping abdominal pain, multiple loose BMs with fever x1 after using Ampicillin for Otitis media, found to have CDiff Ag+. #Pancolitis -Likely CDiff colitis (after home ABx use) -CT A/P noted for pancolitis, Leukocytosis has resolved, remains Afebrile, VSS -Stool Cx pending -Continue PO Vancomycin (PO Abx course started on 01/23) -Tolerating PO, advance diet as per GI -GI Consulted, appreciate rec's #Left Femur sclerotic lesion, found on imaging -Imaging appreciated, Focal intertrochanteric lesion -Orthopedic sx (Dr. Sanches) consulted, appreciate rec's, will have patient follow with orthopedic oncology on dc #Hx of BPH -Continue Tamsulosin #FEN -PO Fluids -Replete lytes PRN -Lactose restricted diet; Advance as per GI #PPX -DVT: Heparin Dispo: Likely DC Tomorrow Visit type - Emergency Visit Emergency Visit: Yes ED Registration Date: 01/22/19 Care time: The patient presented to the Emergency Department on the above date and was hospitalized for further evaluation of their emergent condition. - New Patient This patient is new to me today: No - Critical Care Critical Care patient: No ATTENDING PHYSICIAN STATEMENT I saw and evaluated the patient. I reviewed the resident's note and discussed the case with the resident. I agree with the resident's findings and plan as documented. SUBJECTIVE: OBJECTIVE: ASSESSMENT AND PLAN:
--- NOTE | 2019-01-24 15:30 | PN ---
Teaching Attending Note Name of Resident: Tali Lewis ATTENDING PHYSICIAN STATEMENT I saw and evaluated the patient. I reviewed the resident's note and discussed the case with the resident. I agree with the resident's findings and plan as documented. SUBJECTIVE: Abdominal discomfort resolved but ongoing watery diarrhea, non- bloody. No nausea/vomiting. Fevers resolved. OBJECTIVE: Afebrile. Hemodynamicaly Stable. Last Vital Signs Temp Pulse Resp BP Pulse Ox 98.1 F 64 20 131/79 97 01/24/19 15:21 01/24/19 15:21 01/24/19 15:21 01/24/19 15:21 01/24/19 09:00 Heart - S1, S2, RRR Lungs - clear to auscultation Abdomen - distended, non-tender. Bowel Sounds normal. Extremities - No edema, no calf tenderness. Neuro - AAO x 3. Tone/Power normal all 4 extremities. Laboratory Results - last 24 hr 01/24/19 01/24/19 06:30 06:30 WBC 8.2 RBC 4.53 Hgb 13.7 Hct 40.2 MCV 88.7 MCH 30.3 MCHC 34.2 RDW 15.0 Plt Count 410 MPV 8.6 Absolute Neuts (auto) 4.6 Neutrophils % 55.3 Lymphocytes % 29.6 D Monocytes % 14.0 H Eosinophils % 0.7 Basophils % 0.4 Nucleated RBC % 0 Sodium 140 Potassium 4.0 Chloride 106 Carbon Dioxide 27 Anion Gap 7 L BUN 9.6 Creatinine 0.9 Est GFR (CKD-EPI)AfAm 116.65 Est GFR (CKD-EPI)NonAf 100.64 Random Glucose 83 Calcium 8.6 Phosphorus 2.2 L Magnesium 2.2 Total Bilirubin 0.4 AST 17 ALT 25 Alkaline Phosphatase 80 Total Protein 6.4 Albumin 3.3 L Current Medications Generic Name Dose Route Start Last Admin Trade Name Freq PRN Reason Stop Dose Admin Acetaminophen 650 mg 01/22/19 18:30 01/23/19 00:30 Tylenol - PO 650 mg Q4H PRN Administration PAIN LEVEL 6-10 Heparin Sodium (Porcine) 5,000 unit 01/22/19 22:00 01/24/19 14:39 Heparin - SQ 5,000 unit TID VAHE Administration Sodium Chloride 1,000 mls @ 125 mls/hr 01/22/19 18:30 01/24/19 06:17 Normal Saline - IV 125 mls/hr ASDIR VAHE Administration Vancomycin HCl 125 mg 01/23/19 18:00 01/24/19 11:32 Vancomycin Oral Solution PO 125 mg Q6HPO VAHE Administration Home Medications Medication Instructions Recorded Tamsulosin HCl [Flomax] 0.4 mg PO DAILY 01/22/19 ASSESSMENT AND PLAN: 48 year old male with history of BPH presents with 1 week history of cramping abdominal pain and diarrhea with associated fever. Fever has since resolved but he has remained with intermittent cramping abdominal discomfort and watery diarrhea, without melena or hematochezia. No nausea/vomiting/hematemesis. 1. Pancolitis, secondary to Cdiff CT A/P - Pancolitis Afebrile, hemodynamically stable. Stool Cx pending. Cdiff positive Empiric IV Ceftriaxone/Flagyl stopped. PPI held. Started on oral Vancomycin. Tolerating diet. Will stop IV fluids. GI following. 2. L proximal Femur sclerotic bone lesion, incidental finding on CT Plain film Xray shows focal intertrochanteric lesion. As per Orthopedic Surgery consultation, lesion appears benign with no intervention necessary at this time. he recommends follow up with orthopedic oncologist for further evaluation and management as out-patient - Dr. Blake Carmen (Orthopedic Oncology at [facility], ). He was advised to seek immediate care if he develops hip or groin pain. 3. Bladder Wall thickening/possible cystitis on CT - asymptomatic. Afebrile. Urine Cx pending. 3. BPH - continue Tamsulosin DVT Px - Heparin SQ
[2019-01-25] MEDS: VANCOMYCIN 250 MG/5 ML ORAL SOLUTION PO SCH ×3 (00:27→11:55)
[2019-01-25] MEDS: HEPARIN NA (PORCINE) 5,000 UNITS/ML 1ML VIAL SQ SCH (06:43)
[2019-01-25 11:11] VITALS: BP 103/66; PULSE 57; TEMP 98.3
--- NOTE | 2019-01-25 12:23 | DS ---
Physical Exam: SUBJECTIVE: Abdominal discomfort resolved - diarrhea improved. No nausea/ vomiting. No hematochezia. Fevers resolved. OBJECTIVE: Afebrile. Hemodynamicaly Stable. Last Vital Signs Temp Pulse Resp BP Pulse Ox 98.3 F 57 L 18 103/66 100 01/25/19 10:00 01/25/19 10:00 01/25/19 10:00 01/25/19 10:00 01/24/19 21:00 Heart - S1, S2, RRR Lungs - clear to auscultation Abdomen - soft, non-tender. Bowel Sounds normal. Extremities - No edema, no calf tenderness. Neuro - AAO x 3. Tone/Power normal all 4 extremities. Laboratory Tests 01/22/19 01/22/19 01/22/19 11:20 11:20 11:20 WBC 11.7 H RBC 5.14 Hgb 14.9 Hct 45.3 MCV 88.1 MCH 29.1 MCHC 33.0 RDW 15.3 Plt Count 415 MPV 8.1 Absolute Neuts (auto) 7.1 Neutrophils % 60.7 Lymphocytes % 22.4 Monocytes % 16.3 H Eosinophils % 0.4 Basophils % 0.2 Nucleated RBC % 0 PT with INR 13.50 H INR 1.14 H Sodium 138 Potassium 4.2 Chloride 104 Carbon Dioxide 26 Anion Gap 8 BUN 14.1 Creatinine 1.1 Est GFR (CKD-EPI)AfAm 91.52 Est GFR (CKD-EPI)NonAf 78.96 Random Glucose 82 Calcium 9.5 Phosphorus 3.2 Magnesium 2.3 Total Bilirubin 0.4 AST 15 ALT 31 Alkaline Phosphatase 101 Total Protein 7.2 Albumin 3.5 Lipase 45 L Urine Color Urine Appearance Urine pH Ur Specific Catherine Urine Protein Urine Glucose (UA) Urine Ketones Urine Blood Urine Nitrite Urine Bilirubin Urine Urobilinogen Ur Leukocyte Esterase Stool Occult Blood Blood Type Antibody Screen 01/22/19 01/22/19 01/22/19 11:20 15:12 17:15 WBC RBC Hgb Hct MCV MCH MCHC RDW Plt Count MPV Absolute Neuts (auto) Neutrophils % Lymphocytes % Monocytes % Eosinophils % Basophils % Nucleated RBC % PT with INR INR Sodium Potassium Chloride Carbon Dioxide Anion Gap BUN Creatinine Est GFR (CKD-EPI)AfAm Est GFR (CKD-EPI)NonAf Random Glucose Calcium Phosphorus Magnesium Total Bilirubin AST ALT Alkaline Phosphatase Total Protein Albumin Lipase Urine Color Yellow Urine Appearance Clear Urine pH 5.5 Ur Specific Catherine 1.078 H Urine Protein Negative Urine Glucose (UA) Negative Urine Ketones Negative Urine Blood Negative Urine Nitrite Negative Urine Bilirubin Negative Urine Urobilinogen 0.2 Ur Leukocyte Esterase Negative Stool Occult Blood Negative Blood Type O POSITIVE Antibody Screen Negative 01/22/19 01/23/19 01/23/19 20:45 07:00 07:00 WBC 9.1 RBC 4.39 Hgb 13.1 Hct 38.8 MCV 88.4 MCH 29.9 MCHC 33.8 RDW 15.1 Plt Count 353 MPV 8.0 Absolute Neuts (auto) 5.5 Neutrophils % 60.9 Lymphocytes % 19.2 Monocytes % 18.8 H Eosinophils % 0.8 D Basophils % 0.3 Nucleated RBC % 0 PT with INR INR Sodium Potassium Chloride Carbon Dioxide Anion Gap BUN Creatinine Est GFR (CKD-EPI)AfAm Est GFR (CKD-EPI)NonAf Random Glucose Calcium Phosphorus 2.6 Magnesium 2.1 Total Bilirubin AST ALT Alkaline Phosphatase Total Protein Albumin Lipase Urine Color Urine Appearance Urine pH Ur Specific Catherine Urine Protein Urine Glucose (UA) Urine Ketones Urine Blood Urine Nitrite Urine Bilirubin Urine Urobilinogen Ur Leukocyte Esterase Stool Occult Blood Blood Type O POSITIVE Antibody Screen 01/24/19 01/24/19 06:30 06:30 WBC 8.2 RBC 4.53 Hgb 13.7 Hct 40.2 MCV 88.7 MCH 30.3 MCHC 34.2 RDW 15.0 Plt Count 410 MPV 8.6 Absolute Neuts (auto) 4.6 Neutrophils % 55.3 Lymphocytes % 29.6 D Monocytes % 14.0 H Eosinophils % 0.7 Basophils % 0.4 Nucleated RBC % 0 PT with INR INR Sodium 140 Potassium 4.0 Chloride 106 Carbon Dioxide 27 Anion Gap 7 L BUN 9.6 Creatinine 0.9 Est GFR (CKD-EPI)AfAm 116.65 Est GFR (CKD-EPI)NonAf 100.64 Random Glucose 83 Calcium 8.6 Phosphorus 2.2 L Magnesium 2.2 Total Bilirubin 0.4 AST 17 ALT 25 Alkaline Phosphatase 80 Total Protein 6.4 Albumin 3.3 L Lipase Urine Color Urine Appearance Urine pH Ur Specific Catherine Urine Protein Urine Glucose (UA) Urine Ketones Urine Blood Urine Nitrite Urine Bilirubin Urine Urobilinogen Ur Leukocyte Esterase Stool Occult Blood Blood Type Antibody Screen Discharge Medications Medication Instructions Recorded Tamsulosin HCl [Flomax -] 0.4 mg PO DAILY 01/22/19 Vancomycin HCl 125 mg PO Q6H 14 Days #56 capsule 01/25/19 Date of Admission:01/22/19 Date of Discharge: 01/25/19 Minutes to complete discharge: 40 Discharge Summary Reason For Visit: COLITIS Current Active Problems Clostridium difficile colitis (Acute) Diarrhea (Acute) Pancolitis (Acute) Hospital Course: 48 year old male with history of BPH presents with 1 week history of cramping abdominal pain and diarrhea with associated fever, without melena or hematochezia. No nausea/vomiting/hematemesis. he was found to have pancolitis secondary to clostridium difficile infection after recently completing abx course. He was treated with oral vancomycin with significant improvement in symptoms. he is now medically stable for discharge home with PCP follow up. 1. Pancolitis, secondary to Cdiff CT A/P - Pancolitis Afebrile, hemodynamically stable. Cdiff positive Symptoms improved on oral Vancomycin - will discharge on Vanco for 2 weeks. PCP and GI follow-up on discharge. 2. L proximal Femur sclerotic bone lesion, incidental finding on CT Plain film Xray shows focal intertrochanteric lesion. As per Orthopedic Surgery consultation, lesion appears benign with no intervention necessary at this time. he recommends follow up with orthopedic oncologist for further evaluation and management as out-patient - Dr. Blake Carmen (Orthopedic Oncology at [facility], ). He was advised to seek immediate care if he develops hip or groin pain. 3. Bladder Wall thickening/possible cystitis on CT - asymptomatic. Urine Cx pending - will contact patient if cultures positive. Asymptomatic, afebrile, hemodynamically stable. 3. BPH - continue Tamsulosin Condition: Good - Instructions Diet, Activity, Other Instructions: You were admitted with abdominal pain, diarrhea, and found to have clostridium difficile colitis. You were started on oral vancomycin with improvement in symptoms and resolution of diarrhea. You will be discharged home on vancomycin orally 1 tablet ever 6 hours for 14 days. Please follow with your primary care provider and seek medical attention if any recurrence of symptoms or fever/ chills. You were also found to have incidental finding of Left proximal Femur sclerotic bone lesion, incidental finding on CT Plain film Xray shows focal intertrochanteric lesion. As per Orthopedic Surgery consultation, lesion appears benign with no intervention necessary at this time. However, Tyshawn recommends follow up with orthopedic oncologist for further evaluation and management as out-patient - Dr. Blake Carmen (Orthopedic Oncology at [facility], ). Please seek immediate care if you are to develop hip or groin pain. Referrals: Joe Chakraborty DO [Staff Physician] - Blake Carmen MD [Non Staff, Medical] - Disposition: HOME - Home Medications Comprehensive Discharge Medication List: Ambulatory Orders Tamsulosin HCl [Flomax -] 0.4 mg PO DAILY 01/22/19 Vancomycin HCl 125 mg PO Q6H 14 Days #56 capsule 01/25/19 This patient is new to me today: No Emergency Visit: Yes ED Registration Date: 01/22/19 Care time: The patient presented to the Emergency Department on the above date and was hospitalized for further evaluation of their emergent condition. Critical Care patient: No - Discharge Referral Referred to [facility] No
[2019-01-26 18:15] VITALS: BMI 29.1
== END 2019-01-25 15:18 | disposition home or self-care (01) | DRG 248 ==
LOC: JER 09:41 → JERBED 14:53 → J7W 01-23 11:48
DX: A04.72 Enterocolitis due to Clostridium difficile, not specified as recurrent (principal); M89.9 Disorder of bone, unspecified; N40.0 Benign prostatic hyperplasia without lower urinary tract symptoms; F17.210 Nicotine dependence, cigarettes, uncomplicated; N21.0 Calculus in bladder
CPT/HCPCS: 36415; 71046-TC-FY; 73552-TC-LT-FY; 74177-TC; 80053; 81003; 82272; 83690; 83735; 83993; 84100; 85025; 85027; 85610; 86850; 86900; 86901; 87045; 87046; 87086; 87324; 87449; 87493; 87798; 93005; 93010; 99284-25; J1644; J7030